=== PATIENT | male | born 1950 | race Caucasian/White ===

== ENCOUNTER 2016-10-17 03:54 | Emergency (ER) | payer SELFPAY ==
[~2016-10-17] VITALS: Ht 190.5 cm; Wt 109.1 kg
--- NOTE | 2016-10-17 03:57 | ED.REPORT ---
HPI-General Illness Date of Service Oct 17, 2016 ED Provider: Dr. Kyler Jimenez MD A 65 year old male with a history of hypertension presents to the ED via EMS with sudden onset SOB that began at 2130 this evening. Patient woke up because of his symptoms. He also reports experiencing heart palpitations without any chest pain, fever, nausea, vomiting, or productive cough. He has been mildly diaphoretic. EMS recorded systolic BP in the field at 195. Patient is a former smoker. He denies any respiratory history. Patient denies any recent SOB associated with exertion, or any change in his exercise capacity. Nursing Notes Stated Complaint: SHORTNESS OF BREATH Nursing Notes Reviewed: Yes Allergies: Coded Allergies: No Known Allergies (Unverified , 10/17/16) Scheduled Hydrochlorothiazide (Hydrochlorothiazide) 25 Mg Tablet 25 MG PO DAILY Simvastatin (Simvastatin) 40 Mg Tablet 40 MG PO HS Telmisartan (Micardis) 80 Mg Tablet 80 MG PO DAILY General Time Seen by MD: 03:57 Chief Complaint Other (SOB) Hx Obtained From: Patient Arrived By: Ambulance Sudden in Onset?: Yes Onset Occurred: 5 - 8 hours ago Symptom Duration: Since onset Severity: Current: No pain currently Severity: Maximum: No pain Associated with: Reports: Shortness of breath, Denies: Chest pain, Cough, Fever Pertinent Negative: Pt denies other symptoms Recent Healthcare: No recent doctor visit, No recent hospitalization Past Medical History Past Medical History Hypertension Melanoma Past Surgical History Melanoma resection Smoking History Former Smoker Social History Other Social History: Good social support, Local resident Ambulatory Status Independent Review of Systems Full Review of Systems Constitutional: Denies: Fever Respiratory: Reports: Shortness of breath Cardiovascular: Reports: Palpitations, Denies: Chest pain Complete sys rev & neg: except as marked. Physical Exam Vital Signs Vital Signs Date Time Temp Pulse Resp B/P Pulse Ox O2 Delivery O2 Flow Rate FiO2 10/17/16 06:36 66 13 139/80 95 Room Air 10/17/16 04:03 36.4 72 20 166/97 97 Room Air Initial VS: Reviewed Head / Eyes: Atraumatic, Normocephalic, PERRL ENT: Mucous membranes moist Neck: Supple, Non-tender, Full range of motion Abdomen / GI: Soft, Non-tender, No guarding, No rebound Extremities: Vascular intact, Neuro intact, No swelling, No tenderness Skin: Warm, Dry, No cyanosis Neurologic: Alert, Oriented, Nonfocal Psychiatric: Mood/affect normal, Behavior normal, Normal thought content General/Constitutional: Awake, Alert Behavior: Positive: Anxious Respiratory / Chest: Atraumatic, Breath sounds NL, Breath sounds = bilat RESPIRATORY: Dyspneic Cardiovascular: Heart rate NL, Regular rhythm, Heart sounds NL, Pulses = bilaterally Abdomen: Atraumatic, Soft, Non-tender Upper Extremities Upper Extremity / MS: Atraumatic, Inspection NL, Neurologic intact, Vascular intact, No edema Lower Extremity / Pelvis / MS: Atraumatic, Neurologic intact, Vascular intact, No edema Interpretation & Diagnostics Lab Results Interpretation Result Diagram: 10/17/16 0423 10/17/16 0423 Test 10/17/16 04:23 White Blood Count 4.5th/mm3 (3.8-10.1) Red Blood Count 5.48mil/mm3 (4.40-5.80) Hemoglobin 16.4g/dL (13.8-17.2) Hematocrit 46.7% (41.0-50.0) Mean Corpuscular Volume 85.2fL (81-100) Mean Corpuscular Hemoglobin 29.9pg (27.0-35.0) Mean Corpuscular Hemoglobin Concent 35.1% (32.0-37.0) Red Cell Distribution Width 12.9% (12.3-15.4) Platelet Count 139bil/L (150-400) Neutrophils (%) (Auto) 49.0% (40-74) Lymphocytes (%) (Auto) 36.4% (14-46) Monocytes (%) (Auto) 9.7% (4-12) Eosinophils (%) (Auto) 4.0% (0-5) Basophils (%) (Auto) 0.7% (0-3) Prothrombin Time 10.6sec (8.1-12.5) Prothromb Time International Ratio 0.99ratio Activated Partial Thromboplast Time 27.9sec (22.8-33.0) D-Dimer < 0.50mg/L FEU (<0.50) Sodium Level 136mEq/L (134-144) Potassium Level 3.8mEq/L (3.5-5.2) Chloride Level 97mEq/L (97-108) Carbon Dioxide Level 22mmol/L (18-29) Blood Urea Nitrogen 23mg/dL (8-27) Creatinine 0.82mg/dL (0.76-1.27) Estimat Glomerular Filtration Rate 101mL/min (>59) Glucose Level 105mg/dL (60-99) Calcium Level 9.3mg/dL (8.5-10.1) Magnesium Level 1.9mg/dL (1.6-2.6) Total Bilirubin 0.9mg/dL (0.0-1.2) Aspartate Amino Transf (AST/SGOT) 25U/L (0-50) Alanine Aminotransferase (ALT/SGPT) 27U/L (0-44) Alkaline Phosphatase 48U/L (25-160) Troponin T 0.010ug/L (0.0-0.011) Pro-B-Type Natriuretic Peptide 18.31pg/mL (0-210) Total Protein 7.0g/dL (6.4-8.4) Albumin 4.2g/dL (3.4-5.0) Hold [place] Top Tube Received (Received) ECG Interpretation ECG Interpretation: Sinus Rhythm Rate 71 bpm Time: 04:26 Interpreted by: ED physician X-Ray Chest Interpretation Chest Xray Interpretation: No acute abnormalities Interpretation / Wet Read by: Wet read ED physician Re-Eval/Medical Decision Med Decision/Clinical Course 65-year-old with history of hypertension presents with dyspnea that awakened him from sleep. Chest x-ray is unrevealing. Heart size is normal. EKG is not concerning. D-dimer is normal. Initial cardiac enzymes negative. B natruretic peptide is normal. Uncertain if this is a reflux and bronchospasm episode, although there is no wheezing and no specific history of reflux. Doubt pulmonary embolus with a negative d-dimer. No indication of congestive heart failure. Await second troponin to rule out DE. Signed out at [address] Sim Time of Eval: 06:32 Patient Status: Condition improved Re-Evaluation/Progress Note: Breathing has improved. The patient is informed of the change of shift. All questions about his results are addressed. Counseled Regarding: Diagnosis, Lab results Discharge & Departure Shift Change Sign-Out Patient Care Transferred: Yes Discussed Complaint(s): Yes Laboratory Evaluation: Lab evaluation discussed Imaging Studies: Imaging discussed Dr. Sim Primary Impression: Dyspnea Dyspnea type: unspecified Qualified Code: R06.00 - Dyspnea, unspecified Discharge Condition All VS Reviewed: Yes Condition: Stable Referrals: [facility] Care Transferred to: Dr. Sim Care Transferred at: 06:00 Brandt Attestation Portions of this note were transcribed by Skye Zamora. I, Dr. Jimenez personally performed the history, physical exam and medical decision-making; I reviewed and confirmed the accuracy of the information in the transcribed note. Signed by: Brandt Ohara, 10/17/16 0630. Kyler Jimenez MD Oct 17, 2016 03:57 SKYE ZAMORA Oct 17, 2016 04:06
[2016-10-17 04:03] VITALS: BP 166/97; PULSE 72; RESP 20; O2SAT 97
[2016-10-17] MEDS ORDERED: TELM80TA PO (04:08)
[2016-10-17] MEDS ORDERED: HYDR25TA4 PO (04:08)
[2016-10-17] MEDS ORDERED: SIMV40TA5 PO (04:08)
[2016-10-17 04:39] LABS: BASOPHILS % (AUTO) 0.7 % (0-3); MONOCYTES % (AUTO) 9.7 % (4-12); Mean Corpuscular Hemoglobin 29.9 pg (27.0-35.0); Mean Corpuscular Volume 85.2 fL (81-100); Platelet Count 139 bil/L (150-400)
[2016-10-17 05:02] LABS: D-Dimer < 0.50 mg/L FEU (<0.50); INR 0.99 ratio
[2016-10-17 05:14] LABS: Magnesium 1.9 mg/dL (1.6-2.6)
[2016-10-17 06:36] VITALS: BP 139/80; PULSE 66; RESP 13; O2SAT 95
[2016-10-17 08:39] VITALS: BP 157/74; PULSE 67; RESP 20; O2SAT 95
--- NOTE | 2016-10-17 11:53 | DRSVH ---
PROCEDURE: X-RAY CHEST ONE VIEW, PORTABLE ([id number]) INDICATIONS: SHORTNESS OF BREATH TECHNIQUE: One view of the chest was acquired. COMPARISON: [facility], , CHEST 1VW (PORTABLE), 10/04/2007, 7:40. FINDINGS: Surgical changes and devices: None. Lungs and pleura: No pleural effusions or pneumothorax. Lungs are clear. Mediastinum: Mediastinal contours appear normal. Heart size is normal. Bones and chest wall: No suspicious bony lesions. Overlying soft tissues appear unremarkable. IMPRESSION: No acute cardiopulmonary disease. Dictated by: Regis Zambrano [facility] Interpreted: Reggie Hall MD on 10/17/2016 at 9:49 Approved by: Reggie Hall M.D. on 10/17/2016 at 11:51
== END 2016-10-17 08:39 | disposition home or self-care (01) ==
LOC: EDBD 03:54 → SED 03:54
DX: R06.02 Shortness of breath (principal); R00.2 Palpitations; R50.9 Fever, unspecified; R11.2 Nausea with vomiting, unspecified; R05 Cough; R61 Generalized hyperhidrosis; I10 Essential (primary) hypertension; Z87.891 Personal history of nicotine dependence; Z85.820 Personal history of malignant melanoma of skin
CPT/HCPCS: 36415; 71010; 80053; 83735; 83880; 84484; 85025; 85378; 85610; 85730; 93005; 96374; 99285; J2060